=== PATIENT | male | born 1995 | race Caucasian/White ===

== ENCOUNTER → 2017-04-12 | Outpatient (CLI) | payer OTHER ==
[~2017-04-12] VITALS: Ht 180.3 cm; Wt 70.0 kg
[~2017-04-12] MED LIST: CHLORHEXIDINE GLUCONATE 2 % 1 PACK (2 CLOTHS) TOPICAL PRN; DO NOT ADM ANY ANTICOAGULANT DRUGS PRN; FLUMAZENIL 0.5 MG/5 ML VIAL IV PUSH PRN; INSULIN HUMAN REGULAR 1,000 UNITS/10 ML VIAL SQ PRN; LACTATED RINGER'S 1000 ML IV PRN; LIDOCAINE HCL 1% PF 5 ML AMPULE OTHER ONE; METOPROLOL TARTRATE 25 MG TAB PO PRN; NALOXONE HCL 0.4 MG/ML AMP IV PUSH PRN; PANT20 PO; POVIDONE IODINE 5% (ANTISEPSIS KIT) 4 APPLICATIONS EACH NARE PRN; PROPOFOL 200 MG/20 ML AMP IV PUSH ONE; SODIUM CHLORID 0.9% 500 ML IV PRN; ZANT150T2 PO
--- NOTE | 2017-04-12 10:37 | GIPROC ---
[facility] [address] [facility]. [facility], [id number] EGD PROCEDURE REPORT EXAM DATE: 04/12/2017 PATIENT NAME: Saúl Mccullough MR #: [id number] BIRTHDATE: 1995 ATTENDING: Cyn Aparicio MD ORDER #: [id number] POULTRY HATCH[employer] MAN: Karen Mehta and Michael De La Cruz STATUS: outpatient INDICATIONS: The patient is a 21 yr old male here for an EGD due to heartburn and abdominal pain PROCEDURE PERFORMED: EGD w/ biopsy MEDICATIONS: None and Per Anesthesia. TOPICAL ANESTHETIC: none CONSENT: The patient understands the risks and benefits of the procedure and understands that these risks include, but are not limited to: sedation, allergic reaction, infection, perforation and/or bleeding. Alternative means of evaluation and treatment include, among others: physical exam, x-rays, and/or surgical intervention. The patient elects to proceed with this endoscopic procedure. medical equipment was checked for proper function. Hand hygiene and appropriate measures for infection prevention was taken. After the risks, benefits and alternatives of the procedure were thoroughly explained, Informed consent was verified, confirmed and timeout was successfully executed by the treatment team. The patient was anesthetized with topical anesthesia and the EC-3490Li (Pedi C) endoscope was introduced through the mouth and advanced to the second portion of the duodenum. Retroflexed views revealed no abnormalities The gastroscope was then slowly withdrawn and removed. Regular Z line biopsy from the EG junction. The endoscopy was otherwise normal. Random biopsy from the antrum to rule out H. pylori that may cause abdominal discomfort and dyspepsia. ADVERSE EVENTS: There were no complications. IMPRESSIONS: 1. Regular Z line biopsy from the EG junction 2. Normal endoscopy otherwise 3. Random biopsy from the antrum to rule out H. pylori that may cause abdominal discomfort and dyspepsia 4. Retroflexed views revealed no abnormalities RECOMMENDATIONS: 1. Await biopsy results. Biopsy results will not be ready for 7-10 days. If you don't hear from us in two weeks, call our office for biopsy results. 2. Anti-reflux regimen 3. Avoid NSAIDS 4. Continue PPI PATIENT CONDITION: stable DISPOSITION: Home REPEAT EXAM: Return as needed for EGD Depend on biopsy Cyn Aparicio MD eSigned: Cyn Aparicio MD 04/12/2017 10:37 AM cc:
--- NOTE | 2017-04-12 10:55 | GIPROC ---
[facility] [address] [facility]. [facility], [address] COLONOSCOPY PROCEDURE REPORT EXAM DATE: 04/12/2017 PATIENT NAME: Saúl Mccullough MR #: [id number] BIRTHDATE: 1995 ENDOSCOPIST: Cyn Aparicio MD ORDER #: [id number] MELON PACKER: Karen Mehta and Geetha Mathew STATUS: outpatient INDICATIONS: The patient is a 21 yr old male here for a colonoscopy due to unexplained diarrhea and questionable history of C. difficile PROCEDURE PERFORMED: Colonoscopy with biopsy MEDICATIONS: None and Per Anesthesia. PREP QUALITY: good ESTIMATED BLOOD LOSS: None CONSENT: The patient understands the risks and benefits of the procedure and understands that these risks include, but are not limited to: sedation, allergic reaction, infection, perforation and/or bleeding. Alternative means of evaluation and treatment include, among others: physical exam, x-rays, and/or surgical intervention. The patient elects to proceed with this endoscopic procedure. medical equipment was checked for proper function. Hand hygiene and appropriate measures for infection prevention was taken. After the risks, benefits and alternatives of the procedure were thoroughly explained, Informed consent was verified, confirmed and timeout was successfully executed by the treatment team. A digital exam revealed no abnormalities of the rectum The Pentax EC-3490Li endoscope was introduced through the anus and advanced to the terminal ileum which was intubated for a short distance. The instrument was then slowly withdrawn as the colon was fully examined. COLON FINDINGS: Nodular mucosa in the terminal ileum, most likely this is normal for the patient age biopsy was done from that area. Normal colonoscopy otherwise, random biopsy from the cecum/ sigmoid and rectum was done for diarrhea. Retroflexed views revealed no abnormalities The scope was then completely withdrawn from the patient and the procedure terminated. ADVERSE EVENTS: There were no complications. IMPRESSIONS: 1. Nodular mucosa in the terminal ileum, most likely this is normal for the patient age biopsy was done from that area 2. Normal colonoscopy otherwise, random biopsy from the cecum/ sigmoid and rectum was done for diarrhea 3. Retroflexed views revealed no abnormalities 4. Revealed no abnormalities of the rectum RECOMMENDATIONS: 1. Await biopsy results. Biopsy results will not be ready for 7-10 days. If you don't hear from us in two weeks, call our office for results. 2. High fiber diet 3. Follow-up in office in 1 week RECALL: Colonoscopy As needed Cyn Aparicio MD eSigned: Cyn Aparicio MD 04/12/2017 10:54 AM cc: Marc Rodrigez M.D.
[2017-04-12 12:20] VITALS: BP 114/52; PULSE 52; RESP 20; TEMP 97.5; O2SAT 100
== END ==
LOC: HEND 07:57
PROVIDERS: ATTEND Hospitalist
DX: R10.9 Unspecified abdominal pain (principal); R12 Heartburn; K22.8 Other specified diseases of esophagus; R10.13 Epigastric pain; R19.7 Diarrhea, unspecified
CPT/HCPCS: 88305; 88312